=== PATIENT | female | born 1970 | race Hispanic/Latino ===

== ENCOUNTER 2021-02-20 09:03 | Emergency (ER) | payer OTHER ==
[~2021-02-20] VITALS: Ht 154.9 cm; Wt 72.6 kg
== END 2021-02-20 11:05 | disposition home or self-care (01) ==
LOC: FSED 09:15
DX: B34.9 Viral infection, unspecified (principal); E11.9 Type 2 diabetes mellitus without complications
CPT/HCPCS: 83518; 87400; 99282

== ENCOUNTER 2023-01-20 17:01 | Emergency (ER) | payer MEDICARE, OTHER ==
[~2023-01-20] VITALS: Ht 154.9 cm; Wt 72.6 kg
[2023-01-20 18:02] LABS: CLARITY,URINE CLEAR (CLEAR); COLOR,URINE YELLOW (YELLOW); LEUKOCYTE ESTERASE ,URINE NEGATIVE (NEGATIVE); PH,URINE 6.5 (5 - 7)
[2023-01-20 18:03] LABS: BILIRUBIN,URINE NEGATIVE (NEGATIVE); GLUCOSE, URINE 500 (NEGATIVE); KETONES,URINE NEGATIVE (NEGATIVE); NITRITE,URINE NEGATIVE (NEGATIVE); PROTEIN,URINE DIPSTICK NEGATIVE (NEGATIVE); URINE UROBILINOGEN 0.2 mg/dL (0.2 - 1)
[2023-01-20 18:05] LABS: INR 1.1; PROTHROMBIN TIME 14.4 seconds (11.9-14.5)
[2023-01-20 18:07] LABS: PARTIAL THROMBOPLASTIN TIME 32.8 seconds (23.8-35.5)
[2023-01-20 18:12] LABS: ALBUMIN 3.6 g/dL (3.5-5.0); BILIRUBIN,DIRECT 0.4 mg/dL (0.0-0.5); BILIRUBIN,TOTAL 1.2 mg/dL (0.2-1.2); TOTAL PROTEIN 7.2 g/dL (6.5-8.1)
[2023-01-20 18:15] LABS: AMORPHOUS SEDIMENT,URINE MODERATE (FEW); BACTERIA,URINE FEW /HPF; EPITHELIAL CELLS,URINE FEW /LPF; RBC,URINE 0-5 /HPF (0-5)
[2023-01-20] MEDS ORDERED: KETOROLAC TROMETHAMINE 30 MG/ML VIAL IV STA (18:19)
[2023-01-20] MEDS ORDERED: FAMOTIDINE 20 MG/2 ML VIAL IV STA (18:19)
[2023-01-20] MEDS ORDERED: ONDANSETRON HCL INJ 2MG/ML 2ML 2 MG/ML VIAL IV STA (18:19)
[2023-01-20] MEDS ORDERED: IOPAMIDOL 370 MG/ML 100 ML INFUS..BTL INJ ONE (18:30)
[2023-01-20] MEDS ORDERED: SODIUM CHLORIDE 0.9% 1000ML 1,000 ML IV SCH (18:30)
[2023-01-20] MEDS ORDERED: ACETAMINOPHEN 325 MG TAB PO ONE (18:30)
[2023-01-20] MEDS ORDERED: ONDANSETRON HCL INJ 2MG/ML 2ML 2 MG/ML VIAL ONE (18:32)
[2023-01-20] MEDS ORDERED: SODIUM CHLORIDE 0.9% 1000ML 1,000 ML ONE (18:33)
[2023-01-20] MEDS ORDERED: ACETAMINOPHEN 325 MG TAB ONE (18:33)
[2023-01-20] MEDS ORDERED: KETOROLAC TROMETHAMINE 30 MG/ML VIAL ONE (18:33)
[2023-01-20] MEDS ORDERED: FAMOTIDINE 20 MG/2 ML VIAL IV ONE (18:33)
[2023-01-20 18:46] LABS: CREATINE KINASE 676 IU/L (29-168)
[2023-01-20 18:54] LABS: TROPONIN I < 0.001 ng/mL (0-0.300)
[2023-01-20 20:20] VITALS: O2SAT 98
== END 2023-01-20 20:31 | disposition home or self-care (01) ==
LOC: FSED 17:15
DX: R30.0 Dysuria (principal); R10.30 Lower abdominal pain, unspecified; K74.60 Unspecified cirrhosis of liver; R19.7 Diarrhea, unspecified; E11.65 Type 2 diabetes mellitus with hyperglycemia; R51.9 Headache, unspecified; I10 Essential (primary) hypertension; Z20.822 Contact with and (suspected) exposure to COVID-19; R94.31 Abnormal electrocardiogram [ECG] [EKG]
CPT/HCPCS: 0223U; 36415; 70450; 74177; 80048; 80076; 81001; 81003; 82550; 82553; 83605; 84484; 85025; 85610; 85730; 87040; 87086; 87400; 99284; J1885; J2405; J7030; Q9967; U0002; 93005

== ENCOUNTER 2023-03-25 17:14 | Emergency (ER) | payer MEDICARE ==
[~2023-03-25] VITALS: Ht 154.9 cm; Wt 77.2 kg
[2023-03-25] MEDS ORDERED: LIDOCAINE HCL 2% LOCAL 20 ML VIAL INJ STA (17:21)
[2023-03-25] MEDS ORDERED: NYSTATIN100000 UNI PO (17:42)
[2023-03-25] MEDS ORDERED: NYSTATIN15 GM VG (17:42)
[2023-03-25] MEDS ORDERED: DIFLUCAN100 MG PO (17:42)
[2023-03-25] MEDS ORDERED: CEFTRIAXONE 1 GM VIAL ONE (17:45)
[2023-03-25 17:55] VITALS: O2SAT 98
== END 2023-03-25 17:55 | disposition home or self-care (01) ==
LOC: FSED 17:18
DX: B37.31 Acute candidiasis of vulva and vagina (principal); B37.0 Candidal stomatitis; I10 Essential (primary) hypertension; E11.9 Type 2 diabetes mellitus without complications; K74.69 Other cirrhosis of liver; G89.4 Chronic pain syndrome
CPT/HCPCS: 99284; J0696

== ENCOUNTER 2023-10-29 09:57 | Emergency (ER) | payer MEDICARE ==
[~2023-10-29] VITALS: Ht 154.9 cm; Wt 77.6 kg
[~2023-10-29 09:57] MED LIST: DIFLUCAN100 MG PO; NYSTATIN100000 UNI PO; NYSTATIN15 GM VG
[2023-10-29 10:05] VITALS: TEMP 98
[2023-10-29] MEDS ORDERED: LISINOPRIL10 MG PO (10:22)
[2023-10-29] MEDS ORDERED: FARXIGA10 MG (10:22)
[2023-10-29] MEDS ORDERED: ATORVASTATIN CA10 MG PO (10:22)
[2023-10-29] MEDS: ASPIRIN 81 MG CHEW TAB PO ONE (11:11)
[2023-10-29 11:38] VITALS: PULSE 84; RESP 16; O2SAT 97
[2023-10-29] MEDS ORDERED: CYCLOBENZAPRINE5 MG PO (11:49)
== END 2023-10-29 11:59 | disposition home or self-care (01) ==
LOC: FSED 10:02
DX: R07.89 Other chest pain (principal); E11.65 Type 2 diabetes mellitus with hyperglycemia; I10 Essential (primary) hypertension; K76.9 Liver disease, unspecified; K21.9 Gastro-esophageal reflux disease without esophagitis; G89.4 Chronic pain syndrome; R94.31 Abnormal electrocardiogram [ECG] [EKG]
CPT/HCPCS: 71046; 80053; 82553; 84484; 85025; 85379; 93005; 99284

== ENCOUNTER 2024-04-28 15:11 | Emergency (ER) | payer MEDICARE, OTHER ==
[~2024-04-28 15:11] MED LIST changes: +ATORVASTATIN CA10 MG PO; +CYCLOBENZAPRINE5 MG PO; +FARXIGA10 MG; +LISINOPRIL10 MG PO
[2024-04-28 15:15] VITALS: PULSE 90; RESP 20; TEMP 97.5
[2024-04-28] MEDS: KETOROLAC TROMETHAMINE 30 MG/ML VIAL IV STA (15:49)
[2024-04-28] MEDS: DIPHENHYDRAMINE HCL INJ 50 MG/ML VIAL IV ONE (16:43)
[2024-04-28] MEDS: METOCLOPRAMIDE HCL 10 MG/2ML VIAL IV ONE (16:43)
[2024-04-28 17:27] VITALS: BP 111/53; PULSE 95; RESP 20; TEMP 98.2; O2SAT 95
== END 2024-04-28 17:23 | disposition home or self-care (01) ==
LOC: FSED 15:15
DX: R51.9 Headache, unspecified (principal); I10 Essential (primary) hypertension; E11.9 Type 2 diabetes mellitus without complications; K76.9 Liver disease, unspecified; K21.9 Gastro-esophageal reflux disease without esophagitis; G89.4 Chronic pain syndrome
CPT/HCPCS: 70450; 99283; J1200; J1885; J2765